=== PATIENT | female | born 1995 | race Caucasian/White ===

== ENCOUNTER → 2024-02-21 13:39 | Outpatient (BNVA) | payer MEDICAID, SELFPAY | PROVIDERS: Family Provider Family Medicine; PCP Urology; Visit Provider Emergency Medicine | DX: R39.9 Unspecified symptoms and signs involving the genitourinary system (principal) | CPT/HCPCS: 81000 ==

== ENCOUNTER → 2024-02-26 07:44 | Outpatient (BNVA) | payer MEDICAID, SELFPAY | PROVIDERS: Family Provider Family Medicine; PCP Urology; Visit Provider Nurse Practitioner Women's Health | DX: Z34.90 Encounter for supervision of normal pregnancy, unspecified, unspecified trimester (principal); Z3A.00 Weeks of gestation of pregnancy not specified; N92.6 Irregular menstruation, unspecified | CPT/HCPCS: 81025; 84702 ==

== ENCOUNTER → 2024-03-08 08:02 | Outpatient (BNVA) | payer MEDICAID, SELFPAY | PROVIDERS: Family Provider Family Medicine; PCP Urology; Visit Provider Nurse Practitioner Women's Health | DX: Z34.91 Encounter for supervision of normal pregnancy, unspecified, first trimester (principal); Z3A.08 8 weeks gestation of pregnancy | CPT/HCPCS: 76801; 81000 ==

== ENCOUNTER 2024-10-10 04:23 | Inpatient (IN) | payer MEDICAID, SELFPAY ==
[2024-10-10] VITALS (113 sets, daily range): BP systolic 86–170; BP diastolic 47–86; PULSE 64–133; TEMP 36.9; O2SAT 90–100; BMI 45.6
[2024-10-10 02:27] LABS: Bilirubin Urine Negative (Negative); Blood Urine 3+ (Negative); Glucose Urine UA Negative (Normal); Ketones Urine 1+ (Negative); Leukocyte Esterase Urine 2+ (Negative); Nitrate Urine Negative (Negative); Protein Urine 1+ (Negative); Specific Gravity, Urine 1.011 (1.005-1.030); Urine Appearance Clear (CLEAR); pH Urine 7.5 (5-7)
[2024-10-10 02:32] LABS: Bacteria Urine 1+ /hpf; RBC Urine >100 /hpf (0-2); WBC Urine 21-50 /hpf (0-5)
[2024-10-10 02:55] LABS: Add Urine Culture? Yes; Urine Color Orange (Yellow)
[2024-10-10] MEDS: cephALEXin 500 mg Capsule PO (03:39)
[2024-10-10 04:48] LABS: Basophils % 0.3 %; Eosinophils % 0.1 %; Hematocrit 33.4 % (36-47); Lymphocytes # 1.3 10^3/uL (0.8-4.8); Lymphocytes % 12.2 %; Mean Corpuscular HGB Conc 33.2 g/dL (30-55); Mean Corpuscular Hemoglobin 27.8 pg (27-33); Mean Corpuscular Volume 83.7 fl (85-98); Mean Platelet Volume 11.5 fL (7.4-10.4); Monocytes # 0.9 10^3/uL (0.2-0.9); Monocytes % 8.3 %; Neutrophils % 78.7 %; Nucleated Red Blood Cells % 0 %; Platelet Count 178 10^3/cmm (157-399); Red Blood Count 3.99 10^6/uL (3.85-5.65); Red Cell Distribution Width 14.5 % (12.1-15.1); White Blood Count 10.67 10^3/uL (3.29-11.43)
[2024-10-10] MEDS: lactated ringers 1,000 ML 999 ML IV (05:01)
[2024-10-10] MEDS: ondansetron 2 mg/ML SDV 2 mL 4 MG IVP ×4 (05:02→23:06)
[2024-10-10] MEDS: dextrose 5%-lactated ringers 1,000 ML 125 ML IV ×2 (05:58→14:08)
--- NOTE | 2024-10-10 07:00 | ANES.PREANE2 ---
Pre-Anesthetic Assessment Height/Weight: Height 1.7 m Weight 132.222 kg Temp Pulse BP Pulse Ox O2 Del Method 98.5 F 82 97/50 100 Room Air 10/10/24 02:18 10/10/24 06:55 10/10/24 06:53 10/10/24 06:55 10/10/24 05:01 Preop Diagnosis: IUP labor epidural Familial anesthetic complications: none Was Beta Vaughn taken within 24 hours: N/A Was Clonidine taken within 24 hours: N/A Social No alcohol and No tobacco Exam alert, oriented x 3 and clear to auscultation bilaterally Airway Mallampati: Class II Dentition: full History/ROS No significant history except as noted Pulmonary None reported CV/HEM None reported Urinary Tract Infection (on abx ) Hepatic None reported GI None reported Metabolic Morbid [place] [facility] [place] None reported Neuropsych None reported Anesthetic Plan ASA status: 3 Anesthesia: Anesthesia Evaluation and Regional (specify below) (epidural ) Risk of > 500 ml blood loss (7ml/kg in children): Yes, adequate IV access and fluids planned Medications/Allergies Home Medications Medication Instructions Recorded Confirmed Last Taken Type docosahexaenoic acid 200 mg 200 mg PO DAILY 02/26/24 10/10/24 10/09/24 History capsule ( DHA) Allergies Allergy/AdvReac Type Severity Reaction Status Date / Time No Known Allergies Allergy Verified 10/10/24 02:23 Current Medications Generic Name Dose Route Start Last Admin Trade Name Freq PRN Reason Stop Dose Admin Dextrose/Lactated Ringer's 1,000 mls @ 125 mls/hr 10/10/24 04:30 10/10/24 05:58 Dextrose 5%-Lactated Ringers IV 125 mls/hr .Q8H JOSEFINA Administration Lactated Ringer's 1,000 mls @ 999 mls/hr 10/10/24 04:47 10/10/24 05:01 Lactated Ringers IV 999 mls/hr .Q1H1M PRN Administration See label comments Ondansetron HCl 4 mg 10/10/24 04:25 10/10/24 05:02 Ondansetron 2 Mg/Ml Sdv 2 Ml IVP 4 mg Q4H PRN Administration NAUSEA AND VOMITING PFSH Anesthesia Family History Grandmother Diabetes Paternal Father Hypercholesteremia Heart disease Hypertension Denies family history of Colon cancer Ovarian cancer Prostate cancer Breast cancer Uterine cancer Thyroid disease Stroke Female Reproductive History : 3 Data Anesthesia 10/10/24 04:37 Short CBC 10/10/24 Range/Units 04:37 WBC 10.67 (3.29-11.43) 10^3/uL Hgb 11.10 L (11.27-16.99) g/dL Hct 33.4 L (36-47) % MCV 83.7 L (85-98) fl Plt Count 178 (157-399) 10^3/cmm Neut % (Auto) 78.7 % Neut # (Auto) 8.40 H (1.8-7.7) 10^3/uL Urine 10/10/24 Range/Units 02:20 Urine Color [place] A (Yellow) Urine Appearance Clear (CLEAR) Urine pH 7.5 (5-7) Ur Specific [employer] [place] 1.011 (1.005-1.030) Urine Protein 1+ A (Negative) Urine Glucose (UA) Negative (Normal) Urine Ketones 1+ H (Negative) Urine Nitrate Negative (Negative) Urine Bilirubin Negative (Negative) Ur Leukocyte Esterase 2+ A (Negative) Urine RBC >100 H (0-2) /hpf Urine WBC 21-50 H (0-5) /hpf Blood Bank 10/10/24 04:37 Blood Type O Positive Rho(D) Type Rh positive Antibody Screen Negative Cardiac Studies: No Data to Display Anesthesia Procedures Epidural Time Out Performed: Yes Consents Signed: Procedure Consent Consent: requested by attending/covering physician, from patient, risks and benefits reviewed and patient agrees to proceed Lumbar Level: L4-L5 Epidural position: sitting Epidural procedure: sterile prep of area, 1% lidocaine to numb the area, 18 g needle, negative for paresthesia passed, neg for paresthesia, test dose given, 1.5% xylocaine 1:200k epi, 0.2% Ropivacaine bolus ml (5), placed PCEA, no systemic response, sterile dressing applied, L.U.D. no apparent complications and 0.2% Ropiavacaine @ mls/hr (10) Additional Comments: NIMISHA 6cm, catheter easily threaded to 5cm in the space. VS monitored throughout and remained stable. Pt reports decreased pain with contractions.
--- NOTE | 2024-10-10 07:58 | PM.OPHPUD ---
Labor & Delivery H&P Update Date of Procedure: October 10, 2024 Date H&P Performed: 10/05/24 Changes to previous documentation: Cervical dilation to 4 cm dilated and 70% effaced Admission Diagnosis: 29-year-old 3 para 1-0-1-1 at 38 weeks estimated gestational age presenting in active labor Preop diagnosis: IUP Planned procedure: Vaginal delivery Other information: The patient is a pleasant 29-year-old female who presents to the hospital for contractions. She was noted to have cervical change after her first couple hours in the hospital. As result she was admitted for labor and anticipated delivery. Her has been unremarkable. Her blood type is O+. Her antibody screen was negative. Her glucose screen was negative. She is rubella immune. The remainder of her infectious disease profile is within normal limits. Related Problem List Diagnoses (1) 38 weeks gestation of : A&P Assessment and plan (1) 38 weeks gestation of : I anticipate routine labor and vaginal delivery. Status: Acute
[2024-10-10] MEDS: calcium carbonate 500 mg Chew Tablet 1000 MG PO (08:23)
[2024-10-10] MEDS: ROPivacaine syringe 100 MG/50 ML SYRINGE 10 MG EPIDURAL ×2 (12:03→16:41)
[2024-10-10] MEDS: oxytocin 30 UNIT/500 ML BAG IV (15:30)
--- NOTE | 2024-10-10 20:52 | PM.DELIVERY ---
Delivery Note: Date of delivery: October 10, 2024 Pre-delivery diagnoses: 29-year-old 3 para 2-0-1-1 at 38 weeks estimated gestational age presenting in active labor Post-delivery diagnoses: Status post spontaneous vaginal delivery Procedure: Spontaneous vaginal delivery Delivering Physician: Girish Reese Estimated blood loss (mL): 100 Pre-Delivery Course: The patient presented to the hospital in active labor. An amniotomy was performed. An epidural was placed. Pitocin was added because her contractions had spaced out. She progressed to complete without difficulty. Delivery: DELIVERY: The patient progressed to complete without difficulty. She delivered a male with a weight of 8 pounds 6 ounces with Apgars of 8, 9. The baby was delivered from the KOTA position and placed on the mother's abdomen. The cord was then clamped and cut. There was a nuchal cord x 1 which the baby was delivered through. There was no meconium. The placenta and 3 vessel cord were delivered intact shortly thereafter. The perineum and vaginal vault were carefully examined. A laceration was noted that was just to the right of the urethra. A single ryimvw-it-bcilz stitch was placed with 3-0 Vicryl with care to avoid the area of the urethra.. Both the mother and the baby were in stable condition. History History History 3 Term 1 0 Miscarriages/Ectopic 1 Living Children 1 A&P Assessment and plan (1) Spontaneous vaginal delivery: I anticipate routine care (2) 38 weeks gestation of : Coding Level of Care Code Acute Code for Chg Fwd Diagnoses Spontaneous vaginal delivery O80 38 weeks gestation of Z3A.38
[2024-10-10] MEDS: ibuprofen 800 mg tablet PO (21:53)
[2024-10-10] MEDS: HYDROcodone-acetaminophen 5-325 mg Tablet PO (22:13)
[2024-10-11] VITALS (7 sets, daily range): BP systolic 115–137; BP diastolic 66–87; PULSE 63–77; RESP 12–16; TEMP 36.5–36.9; O2SAT 96–100
[2024-10-11] MEDS: HYDROcodone-acetaminophen 5-325 mg Tablet PO ×2 (04:21→13:18)
--- NOTE | 2024-10-11 07:19 | P.PN_ITS ---
FACILITIES MANAGEMENT EXECUTIVE Subjective 2 Subjective: Interval history: The patient is doing very well. Her bleeding has been within normal limits. Her pain is well-controlled. She is breast-feeding well. There are no concerns. Labor: Station: +2 Amniotic Membrane Status: Leaking Monitor Mode: External Contraction Pattern: Regular Status: Category I Vitals/I&O/Wt Last Vital Signs Temp 98.4 F 10/11/24 04:00 Pulse 69 10/11/24 04:00 Resp 12 10/11/24 04:00 BP 122/74 10/11/24 04:00 Pulse Ox 100 10/11/24 04:00 O2 Del Method Room Air 10/11/24 04:00 10/10/24 10/11/24 10/11/24 22:59 06:59 14:59 Intake Total 600.000 / 1600.000 Output Total 200 / 200 Balance 600.000 / 1600.000 -200 / 1400.000 Weight last 48 hrs Weight 291 lb 8 oz Weight 291 lb 8 oz Weight 291 lb 8 oz Physical Exam 2 Narrative: The patient is alert. She appears comfortable. Her heart has a regular rate and rhythm with no murmurs appreciated. Lungs are clear to auscultation bilaterally. Her fundus is firm and below the umbilicus. Urinary Catheter Management: Reyes: Cath Placed During This Visit: yes Reason for Continuing Indwelling Catheter: Required Immobilization for Trauma or Surgery or Anesthesia Urinary Catheter Date of Insertion: 10/10/24 Urinary Catheter Time of Insertion: 08:00 Data 10/10/24 04:37 A&P Assessment and plan (1) Spontaneous vaginal delivery: I anticipate routine care. (2) 38 weeks gestation of : Attestations 2 Medical Necessity Statement*: Routine care Coding Level of Care Code Acute Code for Chg Fwd Diagnoses Spontaneous vaginal delivery O80 38 weeks gestation of Z3A.38
[2024-10-11] MEDS: PRENATAL VIT NO.130/IRON/FOLIC 1 EACH TABLET PO (09:00)
[2024-10-11] MEDS: ibuprofen 800 mg tablet PO ×3 (09:00→20:48)
[2024-10-11] MEDS: docusate sodium 100 mg Capsule PO ×2 (09:00→20:48)
[2024-10-11 09:25] LABS: Hematocrit 31.5 % (36-47); Mean Corpuscular HGB Conc 31.7 g/dL (30-55); Mean Corpuscular Hemoglobin 26.7 pg (27-33); Mean Platelet Volume 11.7 fL (7.4-10.4); Platelet Count 187 10^3/cmm (157-399); Red Blood Count 3.75 10^6/uL (3.85-5.65); Red Cell Distribution Width 14.6 % (12.1-15.1); White Blood Count 9.95 10^3/uL (3.29-11.43)
--- NOTE | 2024-10-11 12:00 | ANE.PACU2 ---
Inpatient post-anesthesia follow up: Airway intact: Yes Vital signs: Temperature 98 F Pulse Rate 79 Respiratory Rate 16 Blood Pressure 134/87 Pulse Oximetry 99 Oxygen Delivery Me thod Room Air Oxygen Flow Rate Fraction of Inspir ed Oxygen Hydration adequate: Yes Nausea and vomiting: No Pain level: 1 Mental status: Baseline Epidural Start/End: Epidural Start Date: 10/10/24 Epidural Start Time: 07:00 Epidural End Date: 10/10/24 Epidural End Time: 23:54
[2024-10-11] MEDS: cephALEXin 500 mg Capsule PO (20:48)
[2024-10-12 04:25] VITALS: BP 119/79; PULSE 58; RESP 16; TEMP 36.5; O2SAT 98
--- NOTE | 2024-10-12 08:04 | P.DS_ITS ---
Discharge Providers CREDIT CORRESPONDENCE CLERK Date of Admission: 10/10/24 04:23 Date of Discharge: 10/12/24 Attending Provider at Admission: Girish Reese MD Attending Provider at Discharge: Girish Reese MD Primary Care Provider: Johnathan Bose MD Diagnoses at Discharge Discharge Diagnosis (1) Spontaneous vaginal delivery: Status: Acute (2) 38 weeks gestation of : Status: Acute Reason for Visit Reason for Visit: Ctx. Hospital Course Hospital Course The patient presented to the hospital in active labor. An amniotomy was performed. An epidural was placed. She progressed to complete and had an unremarkable delivery of a healthy appearing 38-week male infant. Her course was also unremarkable. She breast-fed well. Her bleeding was within normal limits. Her pain was well-controlled. There were no concerns. Information Peripartum Data: Infant Delivery Method: Vaginal Physical Exam Narrative: The patient is alert. She appears comfortable. Her heart has a regular rate and rhythm with no murmurs appreciated. Lungs are clear to auscultation bilaterally. Her fundus is firm and below the umbilicus. Urinary Catheter Management: Reyes: Cath Placed During This Visit: yes Reason for Continuing Indwelling Catheter: Required Immobilization for Trauma or Surgery or Anesthesia Urinary Catheter Date of Insertion: 10/10/24 Urinary Catheter Time of Insertion: 08:00 History History History 3 Term 1 0 Miscarriages/Ectopic 1 Living Children 1 Discharge Data Studies Completed and Pending Pending at discharge Category Date Time Status Urine Culture Stat Lab 10/10/24 02:20 Results Laboratory Results WBC 9.95 10^3/uL (3.29-11.43) 10/11/24 09:02 RBC 3.75 10^6/uL (3.85-5.65) L 10/11/24 09:02 Hgb 10.00 g/dL (11.27-16.99) L 10/11/24 09:02 Hct 31.5 % (36-47) L 10/11/24 09:02 MCV 84.0 fl (85-98) L 10/11/24 09:02 MCH 26.7 pg (27-33) L 10/11/24 09:02 MCHC 31.7 g/dL (30-55) 10/11/24 09:02 RDW 14.6 % (12.1-15.1) 10/11/24 09:02 Plt Count 187 10^3/cmm (157-399) 10/11/24 09:02 MPV 11.7 fL (7.4-10.4) H 10/11/24 09:02 Neut % (Auto) 78.7 % 10/10/24 04:37 Lymph % (Auto) 12.2 % 10/10/24 04:37 [place] % (Auto) 8.3 % 10/10/24 04:37 Eos % (Auto) 0.1 % 10/10/24 04:37 Baso % (Auto) 0.3 % 10/10/24 04:37 Neut # (Auto) 8.40 10^3/uL (1.8-7.7) H 10/10/24 04:37 Lymph # (Auto) 1.3 10^3/uL (0.8-4.8) 10/10/24 04:37 [place] # (Auto) 0.9 10^3/uL (0.2-0.9) 10/10/24 04:37 Eos # (Auto) 0.0 10^3/uL (0.0-0.8) 10/10/24 04:37 Baso # (Auto) 0.0 10^3/uL (0.0-0.1) 10/10/24 04:37 Nucleated RBC % (auto) 0 % 10/10/24 04:37 Nucleated RBCs # 0.0 /100WBC 10/10/24 04:37 Urine Color [place] (Yellow) A 10/10/24 02:20 Urine Appearance Clear (CLEAR) 10/10/24 02:20 Urine pH 7.5 (5-7) 10/10/24 02:20 Ur Specific [place] 1.011 (1.005-1.030) 10/10/24 02:20 Urine Protein 1+ (Negative) A 10/10/24 02:20 Urine Glucose (UA) Negative (Normal) 10/10/24 02:20 Urine Ketones 1+ (Negative) H 10/10/24 02:20 Urine Blood 3+ (Negative) A 10/10/24 02:20 Urine Nitrate Negative (Negative) 10/10/24 02:20 Urine Bilirubin Negative (Negative) 10/10/24 02:20 Urine Urobilinogen 1.0 mg/dL (Negative) 10/10/24 02:20 Ur Leukocyte Esterase 2+ (Negative) A 10/10/24 02:20 Urine RBC >100 /hpf (0-2) H 10/10/24 02:20 Urine WBC 21-50 /hpf (0-5) H 10/10/24 02:20 Ur Squamous Epith Cells 6-10 /hpf (0-5) 10/10/24 02:20 Amorphous Sediment Not Reportable 10/10/24 02:20 Urine Bacteria 1+ /hpf (NONE) H 10/10/24 02:20 Hyaline Casts 0.40 /lpf 10/10/24 02:20 Blood Type O Positive 10/10/24 04:37 Rho(D) Type Rh positive 10/10/24 04:37 Antibody Screen Negative 10/10/24 04:37 Vitals Last Vital Signs Temp 97.7 F 10/12/24 04:25 Pulse 58 L 10/12/24 04:25 Resp 16 10/12/24 04:25 BP 119/79 10/12/24 04:25 Pulse Ox 98 10/12/24 04:25 O2 Del Method Room Air 10/12/24 04:25 Results Labs OB ([facility]): Blood Type O Positive 10/10/24 Antibody Screen Negative 10/10/24 Hct 31.5 % (36-47) L 10/11/24 Hgb 10.00 g/dL (11.27-16.99) L 10/11/24 Rho(D) Type Rh positive 10/10/24 Plt Count 187 10^3/cmm (157-399) 10/11/24 Ser , Semi-Qnt 21625.00 mIU/mL 02/26/24 HCG, Qual Positive (Negative) H 02/26/24 Micro Urine Specimen 10/10/24 Discharge Plan Discharge Patient Disposition: Home Condition: Stable Prescriptions: New ibuprofen 800 mg Tablet 800 mg PO TID Qty: 45 0RF cephalexin 500 mg Capsule 500 mg PO TID Qty: 9 0RF Continued DHA 200 mg capsule 200 mg PO DAILY Discharge Orders: Discharge Order (Routine); Ordered 10/12/24 Ordered By: Girish Reese Referrals: Girish Reese MD [Physician] - 6 Weeks Discharge Diet: Usual diet Discharge Activity: Limit activity as instructed Patient Instructions: Depression (DC), Opioid Safety (DC), Preeclampsia and Eclampsia After Delivery (GEN), Hemorrhage (DC), OB Discharge Report, OB Food/Drug Interaction Guide, OB Care at Home, Opioid Safety, OB Vaginal Deliveries, Abnormal Bleeding Discharge Attestations CREDIT CORRESPONDENCE CLERK Time Spent in Discharge Care*: less than 30 min Coding Level of Care Code Acute Code for Chg Fwd Diagnoses Spontaneous vaginal delivery O80 38 weeks gestation of Z3A.38
[2024-10-12 09:30] VITALS: BP 168/110; PULSE 112; RESP 18; TEMP 36.6
[2024-10-12] MEDS: PRENATAL VIT NO.130/IRON/FOLIC 1 EACH TABLET PO (09:31)
[2024-10-12] MEDS: cephALEXin 500 mg Capsule PO (09:31)
[2024-10-12] MEDS: docusate sodium 100 mg Capsule PO (09:31)
[2024-10-12] MEDS: ibuprofen 800 mg tablet PO (09:31)
[2024-10-12 10:00] VITALS: BP 123/87; PULSE 85; RESP 16
[2024-10-12 11:45] VITALS: BP 134/87; PULSE 79; RESP 18; TEMP 36.7; O2SAT 99
[2024-10-12 12:12] VITALS: BP 134/87; PULSE 79; RESP 16; TEMP 36.6; O2SAT 99
== END 2024-10-12 12:00 | disposition home or self-care (01) | DRG 807 ==
LOC: OPOB 04:23 → OBGYN 04:23
PROVIDERS: Admitting Provider Family Medicine; Family Provider Family Medicine; PCP Urology; Visit Provider Family Medicine
DX: O69.81X0 Labor and delivery complicated by cord around neck, without compression, not applicable or unspecified (principal); Z37.0 Single live birth; Z3A.38 38 weeks gestation of pregnancy; O71.82 Other specified trauma to perineum and vulva
CPT/HCPCS: 36415; 51702; 59025; 59409; 81001; 85025; 85027; 86850; 86900; 87086; 96374; 96376; 99211; J2405; J2590; J2795; J7120; J7121

== ENCOUNTER → 2024-10-30 11:54 | Outpatient (BNVA) | payer MEDICAID, SELFPAY | PROVIDERS: Family Provider Family Medicine; PCP Urology; Visit Provider Nurse Practitioner | DX: R39.9 Unspecified symptoms and signs involving the genitourinary system (principal) | CPT/HCPCS: 81000; 87086 ==

== ENCOUNTER → 2025-08-04 12:55 | Outpatient (BNVA) | payer MEDICAID, SELFPAY | PROVIDERS: Family Provider Family Medicine; PCP Urology; Visit Provider Nurse Practitioner | DX: R39.9 Unspecified symptoms and signs involving the genitourinary system (principal) | CPT/HCPCS: 81000; 87086 ==

== ENCOUNTER → 2025-09-15 06:00 | Outpatient (BNVA) | payer MEDICAID, SELFPAY | PROVIDERS: Family Provider Family Medicine; PCP Family Medicine; Visit Provider Nurse Practitioner | DX: R39.9 Unspecified symptoms and signs involving the genitourinary system (principal) | CPT/HCPCS: 81000 ==

== ENCOUNTER → 2025-09-18 10:09 | Outpatient (BNVA) | payer MEDICAID, SELFPAY | PROVIDERS: Family Provider Family Medicine; PCP Family Medicine; Visit Provider Nurse Practitioner | DX: R39.9 Unspecified symptoms and signs involving the genitourinary system (principal) | CPT/HCPCS: 87086 ==